=== PATIENT | male | born 2000 ===

== ENCOUNTER 2019-03-24 08:27 | Outpatient (CLI) | payer OTHER | END 2019-03-24 08:32 | disposition home or self-care (01) | LOC: LAB 08:27 | DX: Z00.129 Encounter for routine child health examination without abnormal findings (principal); Z13.220 Encounter for screening for lipoid disorders; Z13.21 Encounter for screening for nutritional disorder ==

== ENCOUNTER 2019-05-16 12:14 | Outpatient (CLI) | payer OTHER | END 2019-05-16 12:21 | disposition home or self-care (01) | LOC: LAB 12:14 | DX: R94.5 Abnormal results of liver function studies (principal) ==